=== PATIENT | male | born 1985 | race Caucasian/White ===

== ENCOUNTER 2017-01-13 19:23 | Emergency (ER) | payer MEDICAID, OTHER ==
[~2017-01-13] VITALS: Ht 175.3 cm; Wt 117.9 kg
[2017-01-13 20:33] LABS: Basophils # (auto) 0 uL; Basophils % (auto) 0.3 % (0.0-2.0); Eosinophils # (auto) 0.1 uL; Eosinophils % (auto) 1.2 % (0.0-7.0); Hematocrit 48.1 % (41.0-53.0); Hemoglobin 15.5 g/dL (13.5-17.5); Lymphocytes % (auto) 29.2 % (10.0-50.0); Mean Corpuscular Hemoglobin 28.7 pg (28.0-32.0); Mean Corpuscular Hgb Conc. 32.3 g/dL (32.0-36.0); Mean Corpuscular Volume 88.9 fL (80.0-100.0); Mean Platelet Volume 7.8 fL (7.4-10.4); Monocytes # (auto) 0.7 uL; Monocytes % (auto) 7.1 % (0.0-12.0); Neutrophils # (auto) 6.5 uL; Neutrophils % (auto) 62.2 % (37.0-80.0); Platelet Count (auto) 327 10^3/uL (140-450); Red Cell Distribution Width 13.6 % (11.6-16.0); White Blood Cell 10.4 10^3/uL (4.4-10.8)
[2017-01-13 20:49] LABS: BUN/Creatinine Ratio 9.8; Calcium 8.7 mg/dL (8.5-10.1)
[2017-01-13 20:51] LABS: Bilirubin, Total 0.4 mg/dL (0.2-1.0); Total Protein 7.5 g/dL (6.4-8.2)
[2017-01-14] MEDS ORDERED: SODIUM CHLORIDE 0.9% 1,000 ML IV ONE (01:22)
[2017-01-14] MEDS ORDERED: MORPHINE SULFATE 4 MG/ML SYRG IV ONE (01:30)
[2017-01-14] MEDS ORDERED: ONDANSETRON HCL 4 MG/2 ML VIAL IV ONE (01:30)
[2017-01-14 01:41] LABS: Amylase 30 U/L (25-115)
[2017-01-14 04:53] VITALS: BP 123/81
== END 2017-01-14 04:51 | disposition home or self-care (01) ==
LOC: ER 19:34
DX: K29.70 Gastritis, unspecified, without bleeding (principal)
CPT/HCPCS: 36415; 71010; 74176; 80053; 82150; 83690; 84484; 85025; 93005; 96361; 96374; 96375; 99285; J2270; J2405